=== PATIENT | female | born 1985 | race Caucasian/White ===

== ENCOUNTER 2018-12-31 23:07 | Emergency (ER) | payer BC, MEDICAID ==
[~2018-12-31] VITALS: Ht 160 cm; Wt 63.5 kg
[2018-12-31] MEDS ORDERED: SODIUM CHLORIDE 0.9% 1,000 ML IV ONE (23:45)
[2019-01-01 00:04] LABS: Basophils # (auto) 0.1 uL; Basophils % (auto) 0.7 % (0.0-2.0); Eosinophils # (auto) 0 uL; Eosinophils % (auto) 0.1 % (0.0-7.0); Hematocrit 38.2 % (36.0-46.0); Lymphocytes # (auto) 1.3 uL; Mean Corpuscular Hemoglobin 32.6 pg (28.0-32.0); Mean Corpuscular Hgb Conc. 34.1 g/dL (32.0-36.0); Mean Corpuscular Volume 95.6 fL (80.0-100.0); Monocytes # (auto) 1.2 uL; Monocytes % (auto) 8.2 % (0.0-12.0); Neutrophils # (auto) 11.9 uL; Nucleated Red Blood Cells % 0.1 %; Platelet Count (auto) 388 10^3/uL (140-450); Red Blood Cells 3.99 10^6/uL (4.0-5.20); Red Cell Distribution Width 13.3 % (11.8-14.3); White Blood Cell 14.5 10^3/uL (4.4-10.8)
[2019-01-01 00:20] LABS: INR < 0.93 (0.9-1.15); Partial Thromboplastin Time 26.5 sec (23.64-32.05)
[2019-01-01 00:24] LABS: Alanine Aminotransferase 21 U/L (13-56); Albumin 2.8 g/dL (3.4-5.0); Anion Gap 12 (5-15); Aspartate Aminotransferase 14 U/L (15-37); BUN/Creatinine Ratio 21.8; Blood Urea Nitrogen 12 mg/dL (7-18); Calcium 9.4 mg/dL (8.5-10.1); Carbon Dioxide 21 mmol/L (21-32); Chloride 107 mmol/L (98-107); GFR African American 165 mL/min; GFR Non-African American 136 mL/min; Glucose 77 mg/dL (74-106); Potassium 3.6 mmol/L (3.5-5.1); Sodium 140 mmol/L (136-145)
[2019-01-01 00:26] LABS: Alkaline Phosphatase 93 U/L (45-117); Bilirubin, Total 0.2 mg/dL (0.2-1.0); Total Protein 6.9 g/dL (6.4-8.2)
[2019-01-01 01:47] LABS: Urine Blood 3+ /uL (Negative); Urine Specific Gravity 1.019 (1.001-1.035)
[2019-01-01 01:48] LABS: Urine WBC MANY /hpf (0 - 5)
[2019-01-01 01:49] LABS: Urine Bacteria MANY /hpf (None Seen)
[2019-01-01 11:56] VITALS: BP 109/70
== END 2019-01-01 12:52 | disposition left against medical advice (07) ==
LOC: EDBD 23:07 → ER 23:17
DX: O20.0 Threatened abortion (principal); Z3A.16 16 weeks gestation of pregnancy; Z53.29 Procedure and treatment not carried out because of patient's decision for other reasons
CPT/HCPCS: 36415; 76801; 80053; 81001; 84702; 85025; 85610; 85730; 86850; 86900; 86901; 94761; 99284; J7030